=== PATIENT | male | born 1970 | race African-American/Black ===

== ENCOUNTER 2016-10-18 12:12 | Emergency (ER) | payer OTHER ==
[2016-10-18 12:15] VITALS: BP 186/121
--- NOTE | 2016-10-18 12:47 | PHYS DOC ---
Past Medical History Past Medical History: Hypertension Smoking: Less than 1pk/day Alcohol Use: Occasionally Drug Use: Marijuana Adult General Chief Complaint Chief Complaint: TOE PROBLEM HPI HPI Patient is a 46 year old male who presents with right 5th toe pain. He states that he bumped it on something while getting up to go to the bathroom during the night and bumped it on a dresser or the bed. He has been ambulatory. Upon arrival to the emergency department, his blood pressure is markedly elevated. He reports that he has been prescribed blood pressure medication in the past. He has not been on the medication for a while because he just got health insurance again. He is in the process of getting a new primary care provider to prescribe his regular medications. Review of Systems Review of Systems Constitutional: Denies fever or chills. [] Musculoskeletal: Denies back pain or joint pain. Reports left 5th toe pain. Integument: Denies rash or skin lesions. Denies laceration, abrasion, or ecchymosis. Neurologic: Denies headache, focal weakness or sensory changes. [] Physical Exam Physical Exam Constitutional: Well developed, well nourished, no acute distress, non-toxic appearance. [] HENT: Normocephalic, atraumatic, oropharynx moist. [] Eyes: PERRLA, EOMI, conjunctiva normal, no discharge. [] Skin: Warm, dry, no erythema, no rash. There is no laceration, abrasion, ecchymosis, or other external signs of injury. Extremities: Left fifth toe tenderness, ROM intact, no edema. 2+ DP pulse. Less than 2 second capillary refill distally. Light touch sensation intact distally. There is no tenderness of the left fifth metatarsal or the remainder of the left foot or ankle. Neurologic: Alert and oriented X 3, normal motor function, normal sensory function, no focal deficits noted. [] Psychologic: Affect normal, judgement normal, mood normal. [] Current Patient Data Vital Signs Vital Signs Date Time Temp Pulse Resp B/P Pulse Ox O2 Delivery O2 Flow Rate FiO2 10/18/16 12:15 97.6 95 18 98 Room Air 97.6 EKG EKG [] Radiology/Procedures Radiology/Procedures REASON: hit 5th toe 2 weeks ago, continued paih PROCEDURE: TOES LEFT EXAM: Left foot, 3 views. HISTORY: Trauma. COMPARISON: None. FINDINGS: Frontal, lateral and oblique views of the left toes are obtained no displaced fracture is seen. There is spurring along the lateral aspect of the first metatarsal head. IMPRESSION: No acute osseous finding. Course & Med Decision Making Course & Med Decision Making Pertinent Labs and Imaging studies reviewed. (See chart for details) Patient presents with left fifth toe pain for 2 weeks. On exam, there is no external sign of injury. He is neurovascularly intact. X-ray does not show any acute fractures or dislocations. His toe was silva taped by bi technical lead and he was provided with a postop shoe prior to discharge. He is given contact information for orthopedics for follow-up. He is discharged home with prescription for Ultram for pain. I again stressed to him how important it is to establish care with a PCP for management of his blood pressure. Return precautions were discussed. He verbalizes understanding of all the above and agrees with plan. Dragon Disclaimer Dragon Disclaimer This electronic medical record was generated, in whole or in part, using a voice recognition dictation system. Departure Departure Impression: Primary Impression: Toe contusion Additional Impression: Hypertension Disposition: 01 HOME, SELF-CARE Condition: STABLE Referrals: IMELDA REEVES MD Patient Instructions: Silva Taping of Toes Additional Instructions: Your xray does not show any broken bones. Please wear the provided postop shoe as needed for support while walking. Please take the prescribed pain medication as directed. Do not drive or operate heavy machinery while taking pain medication. Please follow-up with a primary care provider regarding your blood pressure. Please follow-up with the orthopedic doctor listed below if your pain continues. Return to emergency department if you have any chest pain, shortness of breath, headache, weakness or numbness on one side of her body, or other new or concerning symptoms. Scripts Tramadol Hcl (Ultram)50 Mg [id number] Mg PO Q6H PRN PAIN #20 TAB Prov:ERASMO ASKEW 10/18/16 Problem Qualifiers Primary Impression: Toe contusion Encounter type: initial encounter Toe: lesser toe Damage to nail status: without damage Laterality: left Qualified Code: S90.122A - Contusion of left lesser toe(s) without damage to nail, initial encounter Additional Impression: Hypertension Hypertension type: essential hypertension Qualified Code: I10 - Essential ( primary) hypertension ERASMO ASKEW Oct 18, 2016 12:47
--- NOTE | 2016-10-18 13:18 | RAD ---
EXAM: Left foot, 3 views. HISTORY: Trauma. COMPARISON: None. FINDINGS: Frontal, lateral and oblique views of the left toes are obtained no displaced fracture is seen. There is spurring along the lateral aspect of the first metatarsal head. IMPRESSION: No acute osseous finding.
[2016-10-18] MEDS ORDERED: TRAM-29 PO (13:57)
== END 2016-10-18 14:00 | disposition home or self-care (01) ==
LOC: ER 12:16
DX: S90.121A Contusion of right lesser toe(s) without damage to nail, initial encounter (principal); I10 Essential (primary) hypertension; F17.200 Nicotine dependence, unspecified, uncomplicated; F12.10 Cannabis abuse, uncomplicated; W22.8XXA Striking against or struck by other objects, initial encounter; Y93.89 Activity, other specified; Y92.89 Other specified places as the place of occurrence of the external cause; Y99.8 Other external cause status
CPT/HCPCS: 73660; 99284